=== PATIENT | male | born 1930 | race Caucasian/White ===

== ENCOUNTER → 2016-12-11 | Outpatient (REF) ==
[~2016-12-11] MED LIST: ALPHAG-P-0.1-10; ALPHAG-P-0.1-5ML OU; ALPHAGAN-P 5 ML5 ML OU; ASPIR-LOW81 MG PO; ASPIRIN 81M81 MG/TA2 PO; ASPIRIN E.C. 8181 MG PO; BRIMONIDINE 0.15% OU; CEPHALEXIN500 M1 PO; CORRECTIVE LAXAT5 MG PO; COUMADIN 22.5 MG/TAB PO; COUMADIN 5MG5 MG/TAB PO; COZAAR100 MG PO; DIPYRIDAMOLE PO; FISH OIL 1000MG1 CAP PO; FISH OIL500 MG PO; FLOMAX 0.40.4 MG/CAP; FLOMAX 0.40.4 MG/CAP PO; FLONASE NASAL S16 GM NS; GEMCOR600 MG PO; LASIX 20MG TABL20 MG PO; LASIX 40MG TABL40 MG PO; LEVOXYL0.025 MG PO; LIPITOR20 MG PO; LOPID 600M600 MG/TAB PO; LOPRESSOR 225 MG/TAB PO; MIRALAX PA17 GM/Dose PO; MYRBETR50MG PO; NATURAL SENNA8.6 MG PO; NITRO-DUR0.4 MG/PAT TD; NORVASC 5MG5 MG/TAB PO; OMEGA-31 SGL PO; PRINIVIL5 MG PO; PROTONIX 40MG T40 MG PO; SENNA8.6 MG PO; STOOL SOFTENER100 M2 PO; SYNTHROID0.05 MG/TA PO; SYNTHROID0.075 MG/T PO; SYSTANE 0.3-0.1 EACH OP; SYSTANE 0.3-0.1 EACH OU; TOPROL XL 50MG50 MG PO; TYLENOL 325MG325 MG PO; XALATAN EYE DROPS OU; xalatan OP
[2016-12-11 10:05] LABS: CALCIUM 9.7 mg/dL (8.4-10.2); CREATININE, serum 1.36 mg/dL (0.66-1.25); POTASSIUM 3.9 mmol/L (3.4-5.0)
== END ==
LOC: ZLAB.STJ 09:39
PROVIDERS: Family Medicine
DX: Z01.89 Encounter for other specified special examinations (principal)

== ENCOUNTER 2017-01-01 08:07 | Inpatient (IN) | payer MEDICARE, OTHER ==
[~2017-01-01] VITALS: Ht 172.7 cm; Wt 87.9 kg
[2017-01-01] VITALS (136 sets, daily range): BP systolic 154–177; BP diastolic 87–93; PULSE 54–60; TEMP 96.8–98.4; O2SAT 93–99
[~2017-01-01 08:07] MED LIST changes: -BRIMONIDINE 0.15% OU; -LASIX 20MG TABL20 MG PO; -LASIX 40MG TABL40 MG PO; -LIPITOR20 MG PO; -NITRO-DUR0.4 MG/PAT TD; -NORVASC 5MG5 MG/TAB PO; -PRINIVIL5 MG PO; -SYNTHROID0.075 MG/T PO; -SYSTANE 0.3-0.1 EACH OU; -TOPROL XL 50MG50 MG PO
[2017-01-01 08:37] LABS: BASO % 0.7 % (0.0-2.0); EOS # 0.1 (0.0-0.7); EOS % 2.2 % (0-4.0); GRAN # 3.9 (1.4-6.5); GRAN % 70.9 % (42.2-75.2); HEMATOCRIT 37.2 % (42.0-52.0); HEMOGLOBIN 12.2 g/dl (13.5-18.0); LYMPH # 1.1 (1.2-3.4); LYMPH % 20.1 % (20.0-51.0); MEAN CELL VOLUME 95 fl (80.0-100.0); MEAN CORPUSCULAR HEMOGLOBIN 31 pg (27.0-31.0); MEAN CORPUSCULAR HGB CONC 33 g/dl (33.0-37.0); MEAN PLATELET VOLUME 9.9 fl (7.4-10.4); MONO # 0.3 (0.1-0.6); MONO % 5.7 % (1.7-9.3); PLATELET COUNT 169 K/mm3 (130-400); REDCELL DISTRIBUTION WIDTH-CV 13.7 % (11.5-14.5); WHITE BLOOD COUNT 5.5 K/mm3 (4.8-10.8)
[2017-01-01 08:40] LABS: INR 2.3 (0.8-3.0); PROTHROMBIN TIME 26.3 SECONDS (9.7-12.8)
[2017-01-01 08:42] LABS: PARTIAL THROMBOPLASTIN TIME 37.4 SECONDS (26.0-37.0)
[2017-01-01 08:48] LABS: ADJUSTED CALCIUM 9.5 mg/dL (8.4-10.2); CALCIUM 9.5 mg/dL (8.4-10.2); CREATININE, serum 1.24 mg/dL (0.66-1.25); POTASSIUM 3.5 mmol/L (3.4-5.0); TOTAL PROTEIN 7.6 gm/dL (6.4-8.2)
[2017-01-01 09:05] LABS: TROPONIN-I 0.082 ng/mL (0.000-0.034)
[2017-01-01] MEDS ORDERED: SYNTHROID0.075 MG/T PO (12:11)
[2017-01-01] MEDS ORDERED: LIPITOR20 MG PO (12:11)
[2017-01-01] MEDS ORDERED: LASIX 20MG TABL20 MG PO (12:11)
[2017-01-01] MEDS ORDERED: SYSTANE 0.3-0.1 EACH OU (12:14)
[2017-01-01] MEDS ORDERED: BRIMONIDINE 0.15% OU (12:15)
[2017-01-01 16:08] LABS: INFLUENZA B NEGATIVE
[2017-01-02] VITALS (1051 sets, daily range): BP systolic 124–177; BP diastolic 69–96; PULSE 60–66; TEMP 97.4–97.8; O2SAT 80–100
[2017-01-02 06:39] LABS: BASO % 0.5 % (0.0-2.0); EOS # 0.1 (0.0-0.7); EOS % 2.2 % (0-4.0); GRAN # 4.3 (1.4-6.5); LYMPH # 1.3 (1.2-3.4); LYMPH % 21.2 % (20.0-51.0); MEAN CELL VOLUME 95 fl (80.0-100.0); MEAN CORPUSCULAR HGB CONC 33 g/dl (33.0-37.0); MEAN PLATELET VOLUME 10.1 fl (7.4-10.4); MONO # 0.5 (0.1-0.6); MONO % 7.9 % (1.7-9.3); PLATELET COUNT 175 K/mm3 (130-400); RED BLOOD COUNT 3.47 M/mm3 (4.20-5.60); REDCELL DISTRIBUTION WIDTH-CV 13.8 % (11.5-14.5); WHITE BLOOD COUNT 6.3 K/mm3 (4.8-10.8)
[2017-01-02 06:40] LABS: HEMOGLOBIN 10.8 g/dl (13.5-18.0); MEAN CORPUSCULAR HEMOGLOBIN 31 pg (27.0-31.0)
[2017-01-02 06:44] LABS: CALCIUM 9.3 mg/dL (8.4-10.2); CREATININE, serum 1.11 mg/dL (0.66-1.25); POTASSIUM 3.6 mmol/L (3.4-5.0)
[2017-01-02 07:13] LABS: TROPONIN-I 7.54 ng/mL (0.000-0.034)
[2017-01-03] VITALS (448 sets, daily range): BP systolic 103–135; BP diastolic 54–75; PULSE 59–70; TEMP 97.1–98; O2SAT 89–99
[2017-01-03 06:08] LABS: INR 2.8 (0.8-3.0); PROTHROMBIN TIME 31.8 SECONDS (9.7-12.8)
[2017-01-03 06:26] LABS: CALCIUM 9.2 mg/dL (8.4-10.2); CREATININE, serum 1.09 mg/dL (0.66-1.25); POTASSIUM 3.3 mmol/L (3.4-5.0)
[2017-01-03 06:35] LABS: TROPONIN-I 2.6 ng/mL (0.000-0.034)
[2017-01-04 03:32] VITALS: BP 88/29; PULSE 59; TEMP 97.9
[2017-01-04 04:24] VITALS: BP 113/62; PULSE 62
[2017-01-04 07:42] LABS: INR 2.2 (0.8-3.0); PROTHROMBIN TIME 24.6 SECONDS (9.7-12.8)
[2017-01-04 07:45] LABS: BASO % 0.6 % (0.0-2.0); EOS # 0.2 (0.0-0.7); GRAN # 3.2 (1.4-6.5); GRAN % 61.7 % (42.2-75.2); LYMPH # 1.3 (1.2-3.4); LYMPH % 25.5 % (20.0-51.0); MEAN CELL VOLUME 96 fl (80.0-100.0); MEAN CORPUSCULAR HGB CONC 33 g/dl (33.0-37.0); MEAN PLATELET VOLUME 10.4 fl (7.4-10.4); MONO # 0.5 (0.1-0.6); PLATELET COUNT 156 K/mm3 (130-400); RED BLOOD COUNT 3.41 M/mm3 (4.20-5.60); REDCELL DISTRIBUTION WIDTH-CV 13.8 % (11.5-14.5); WHITE BLOOD COUNT 5.3 K/mm3 (4.8-10.8)
[2017-01-04 08:07] LABS: HEMATOCRIT 32.8 % (42.0-52.0); HEMOGLOBIN 10.7 g/dl (13.5-18.0); MEAN CORPUSCULAR HEMOGLOBIN 31 pg (27.0-31.0)
[2017-01-04 08:10] LABS: CALCIUM 9.5 mg/dL (8.4-10.2); CREATININE, serum 1.15 mg/dL (0.66-1.25); POTASSIUM 3.5 mmol/L (3.4-5.0)
[2017-01-04 08:43] VITALS: BP 141/69; PULSE 68; TEMP 99.3
[2017-01-04] MEDS ORDERED: TOPROL XL 50MG50 MG PO (12:07)
[2017-01-04] MEDS ORDERED: LASIX 40MG TABL40 MG PO (12:08)
[2017-01-04] MEDS ORDERED: PRINIVIL5 MG PO (12:08)
[2017-01-04] MEDS ORDERED: NORVASC 5MG5 MG/TAB PO (12:08)
[2017-01-04] MEDS ORDERED: NITRO-DUR0.4 MG/PAT TD (12:20)
[2017-01-04 12:31] VITALS: BP 129/60; PULSE 61; TEMP 97.4
[2017-01-04 13:22] VITALS: BP 129/60; PULSE 61; TEMP 97.4
== END 2017-01-04 14:13 | DRG 280 ==
LOC: COL.ER 08:07 → PEDS 09:37 → IMCU 17:37 → MEDICAL 01-03 15:02
PROVIDERS: Emergency Medicine; Family Medicine; Nurse Practitioner Family
DX: I13.0 Hypertensive heart and chronic kidney disease with heart failure and stage 1 through stage 4 chronic kidney disease, or unspecified chronic kidney disease (principal); I21.4 Non-ST elevation (NSTEMI) myocardial infarction; I50.23 Acute on chronic systolic (congestive) heart failure; N18.3 Chronic kidney disease, stage 3 (moderate); I48.0 Paroxysmal atrial fibrillation; Z66 Do not resuscitate; I69.991 Dysphagia following unspecified cerebrovascular disease; R13.10 Dysphagia, unspecified; H40.9 Unspecified glaucoma; F03.90 Unspecified dementia, unspecified severity, without behavioral disturbance, psychotic disturbance, mood disturbance, and anxiety; E78.5 Hyperlipidemia, unspecified; Z79.01 Long term (current) use of anticoagulants; Z95.0 Presence of cardiac pacemaker
CPT/HCPCS: 99223-AI; 99233-AI; 99239; A9502; J1940; J2785; J7030

== ENCOUNTER 2019-01-03 16:03 | Inpatient (IN) | payer MEDICARE ==
[2019-01-03] VITALS (131 sets, daily range): BP systolic 100–108; BP diastolic 57–60; PULSE 60–65; TEMP 99.5; O2SAT 95–100
[~2019-01-03] VITALS: Ht 172.7 cm; Wt 92.3 kg
[~2019-01-03 16:03] MED LIST changes: +BRIMONIDINE 0.15% OU; +LASIX 20MG TABL20 MG PO; +LASIX 40MG TABL40 MG PO; +LIPITOR20 MG PO; +NITRO-DUR0.4 MG/PAT TD; +NORVASC 5MG5 MG/TAB PO; +PRINIVIL5 MG PO; +SYNTHROID0.075 MG/T PO; +SYSTANE 0.3-0.1 EACH OU; +TOPROL XL 50MG50 MG PO
[2019-01-03 16:34] LABS: ARTERIAL BLD GAS O2 SATURATION 86.9 % (92-100); ARTERIAL BLOOD GAS BASE EXCESS -5.4 (-2-2); ARTERIAL BLOOD GAS HCO3 17.2 meq/L (22-26); ARTERIAL BLOOD GAS PCO2 25.6 mmHg (35-45); ARTERIAL BLOOD GAS PO2 53.2 mmHg (80-100); ARTERIAL BLOOD GAS pH 7.45 (7.35-7.45)
[2019-01-03 16:53] LABS: HEMATOCRIT 32.5 % (42.0-52.0); HEMOGLOBIN 10.6 g/dl (13.5-18.0); MEAN CELL VOLUME 95 fl (80.0-100.0); MEAN CORPUSCULAR HEMOGLOBIN 31 pg (27.0-31.0); MEAN CORPUSCULAR HGB CONC 33 g/dl (33.0-37.0); MEAN PLATELET VOLUME 9.9 fl (7.4-10.4); PLATELET COUNT 182 K/mm3 (130-400); RED BLOOD COUNT 3.41 M/mm3 (4.20-5.60); REDCELL DISTRIBUTION WIDTH-CV 13.8 % (11.5-14.5)
[2019-01-03 16:59] LABS: INR 2.9 (0.8-3.0); PROTHROMBIN TIME 33.5 SECONDS (9.7-12.8)
[2019-01-03 17:04] LABS: BILIRUBIN,TOTAL 1.4 mg/dL (0.0-1.0); CALCIUM 9.6 mg/dL (8.4-10.2); CREATININE, serum 1.91 mg/dL (0.66-1.25); POTASSIUM 4.5 mmol/L (3.4-5.0); TOTAL PROTEIN 7.7 gm/dL (6.4-8.2)
[2019-01-03 17:18] LABS: TROPONIN-I 0.042 ng/mL (0.000-0.035)
[2019-01-03] MEDS ORDERED: SYNTHROID0.075 MG/T PO (18:29)
[2019-01-03] MEDS ORDERED: PROTONIX 40MG T40 MG PO (18:30)
[2019-01-03] MEDS ORDERED: IMDUR 30MG30 MG/TAB PO (18:30)
[2019-01-03] MEDS ORDERED: NORVASC 5MG5 MG/TAB PO (18:32)
[2019-01-03 18:44] LABS: ARTERIAL BLD GAS O2 SATURATION 92.5 % (92-100); ARTERIAL BLD GAS TCO2 CT 21.2; ARTERIAL BLOOD GAS BASE EXCESS -3.5 (-2-2); ARTERIAL BLOOD GAS HCO3 20.3 meq/L (22-26); ARTERIAL BLOOD GAS PCO2 32.1 mmHg (35-45); ARTERIAL BLOOD GAS PO2 71.5 mmHg (80-100); ARTERIAL BLOOD GAS pH 7.42 (7.35-7.45)
--- NOTE | 2019-01-03 19:30 | NUR ---
Report received from Annie SHAH from ED. ED nurse notified unit is awaiting another staff member in order to assume care. Will call when staff member arrives.
--- NOTE | 2019-01-03 20:05 | NUR ---
Pt arrives via stretcher with ED staff members. Anesthesia arrived in room just moments prior to pt arriving with preparations to intubate at bedside.
--- NOTE | 2019-01-03 20:30 | NUR ---
Anesthesia provider intubated pt at 2010 in ICU01 with an 8.0 tube. Sedation medication provided per provider. Provider remained at bedside for approximately 20 minutes following intubation. RT staff X2 with nursing staff X3 in room at this time. Pt tolerated procedure.
--- NOTE | 2019-01-03 20:30 | NUR ---
PT ARRIVED FROM ED. PATIENT INTUBATED BY SPOOL WORKER WITH A 8.0 ET TUBE. COLOR CHANGE ON ETCO2, BILATERAL CHEST RISE AND BS. CXR TAKEN TO CONFIRM ET TUBE PLACEMENT, PT PLACED ON VENT PER DOCTORS ORDERS. ABG DRAWN 30 MINUTES AFTER BEING PLACED ON VENT, RESULTS CALLED TO [facility]. FIO2 TITRATED PER [facility] ORDERS, NO FURTHER ORDERS FROM [facility] AT THIS TIME.
[2019-01-03 20:50] LABS: ARTERIAL BLD GAS O2 SATURATION 98.5 % (92-100); ARTERIAL BLD GAS TCO2 CT 19.5; ARTERIAL BLOOD GAS BASE EXCESS -5.6 (-2-2); ARTERIAL BLOOD GAS HCO3 18.6 meq/L (22-26); ARTERIAL BLOOD GAS PCO2 31.6 mmHg (35-45); ARTERIAL BLOOD GAS pH 7.39 (7.35-7.45)
[2019-01-03 20:53] LABS: ARTERIAL BLOOD GAS PO2 238.9 mmHg (80-100)
[2019-01-03 20:59] LABS: BAND 14 % (0-10); EOSINOPHIL 1 % (0-4); LYMPHOCYTE 5 % (20.0-51.0); NEUTROPHILS 80 % (42.0-75.2)
[2019-01-03 22:48] LABS: PARTIAL THROMBOPLASTIN TIME 33.3 SECONDS (26.0-37.0)
[2019-01-04] VITALS (755 sets, daily range): BP systolic 96–120; BP diastolic 45–67; PULSE 59–67; TEMP 97.5–99.5; O2SAT 85–100
[2019-01-04] MEDS ORDERED: ALPHAGAN P 15 M15 ML OU (01:44)
[2019-01-04] MEDS ORDERED: FISH OIL 1000MG1 CAP PO (01:45)
[2019-01-04] MEDS ORDERED: XALATAN EYE DROPS OD (01:46)
--- NOTE | 2019-01-04 02:03 | NUR ---
SUCTIONED SCANT WHITE
[2019-01-04 05:11] LABS: BASO % 0.4 % (0.0-2.0); EOS % 0.1 % (0-4.0); GRAN # 8.2 (1.4-6.5); GRAN % 87.4 % (42.2-75.2); LYMPH # 0.6 (1.2-3.4); LYMPH % 6.5 % (20.0-51.0); MEAN CELL VOLUME 98 fl (80.0-100.0); MEAN CORPUSCULAR HGB CONC 33 g/dl (33.0-37.0); MEAN PLATELET VOLUME 9.8 fl (7.4-10.4); MONO # 0.5 (0.1-0.6); MONO % 5.3 % (1.7-9.3); PLATELET COUNT 126 K/mm3 (130-400); REDCELL DISTRIBUTION WIDTH-CV 14.3 % (11.5-14.5)
[2019-01-04 05:12] LABS: HEMATOCRIT 27.3 % (42.0-52.0); HEMOGLOBIN 8.9 g/dl (13.5-18.0); MEAN CORPUSCULAR HEMOGLOBIN 32 pg (27.0-31.0)
[2019-01-04 05:12] LABS: ARTERIAL BLD GAS O2 SATURATION 96.3 % (92-100); ARTERIAL BLD GAS TCO2 CT 22.9; ARTERIAL BLOOD GAS BASE EXCESS -2.6 (-2-2); ARTERIAL BLOOD GAS HCO3 21.8 meq/L (22-26); ARTERIAL BLOOD GAS PCO2 36.3 mmHg (35-45); ARTERIAL BLOOD GAS PO2 97.3 mmHg (80-100)
[2019-01-04 05:16] LABS: INR 3.9 (0.8-3.0); PROTHROMBIN TIME 44.7 SECONDS (9.7-12.8)
[2019-01-04 05:25] LABS: BILIRUBIN,TOTAL 0.7 mg/dL (0.0-1.0); CALCIUM 8.3 mg/dL (8.4-10.2); CREATININE, serum 1.9 mg/dL (0.66-1.25); PHOSPHOROUS 4.5 mg/dL (2.5-4.5); POTASSIUM 4.5 mmol/L (3.4-5.0); TOTAL PROTEIN 6.1 gm/dL (6.4-8.2)
[2019-01-04 05:38] LABS: TROPONIN-I 1.15 ng/mL (0.000-0.035)
--- NOTE | 2019-01-04 05:42 | NUR ---
PT INTUBATED LESS THAN 24 HOURS.
--- NOTE | 2019-01-04 07:12 | NUR ---
Bedside report recieved from Corrie SHAH. Medication gtt's verified; ET and OG tubes verified as well. Patient turned, repositioned, and skin assessed. Cath care done at this time. Call light in reach. Family in room after report complete.
--- NOTE | 2019-01-04 07:12 | NUR ---
Bedside report provided to Lisa Jacobo RN
--- NOTE | 2019-01-04 08:15 | NUR ---
Patient restless, pulling against wrist restraints. Sedation increased at this time as patiet doesn't follow commands when told to relax. Will attempt to wean sedation down after PICC placement.
--- NOTE | 2019-01-04 10:00 | NUR ---
Received a phone call from Dr. Michelle regarding PICC tip location. PICC flushed with 30ml normal saline with good blood return noted. Chest x ray repeated. PICC tip location in lower SVC.
--- NOTE | 2019-01-04 10:53 | NUR ---
SW met with patient, who is intubated, and his daughter. Patient lives at [facility] in Independent living. He was driving up to this weekend and doing well independently. Patients PCP is Dr Gilliland and he obtains his medications from [facility]. Patients DPOA is in EMR. Patients Daughter reports if he is able they would like him to go back to [facility] for IL or SN if needed but he also recently got diagnosed with cancer and they could possibly be looking into hospice. SW discussed their options if they would like to persue hospice but they would like to continue to see how he progresses. SW will continue to follow to assist in dc planning.
--- NOTE | 2019-01-04 12:18 | NUR ---
Patient drowsy, minimal response when name called or with tactile stim. Sedation tritrated down again at this time.
--- NOTE | 2019-01-04 13:21 | NUR ---
Starting to arouse better with verbal and tactile stim. Will squeeze hands of this RN, but will not open eyes. Sedation titrted down again. Will monitor. Daughter at bedside, and explained titration, voices understanding.
--- NOTE | 2019-01-04 17:41 | NUR ---
Sedation vacation started at this time. Propofol and Fentanyl both decreased, will monitor for need to adjust.
--- NOTE | 2019-01-04 19:33 | NUR ---
Bedside report given to Jimena SHAH. Family and RT at bedside for report, questions answered. Patient repositioned to right side and skin inspected with on coming RN
--- NOTE | 2019-01-04 19:35 | NUR ---
Family at bedside. Assessment completed; patient opens eyes spontaneously and is observed moving all extremities. Not able to follow commands at this time. Granddaughter states he is very hard of hearing. Will continue to monitor.
[2019-01-05] VITALS (714 sets, daily range): BP systolic 112–136; BP diastolic 54–68; PULSE 59–63; TEMP 97.6–99; O2SAT 90–100
--- NOTE | 2019-01-05 | NUR ---
Patient able to squeeze hands on command; tolerating ventilator well on minimal sedation. No concerns at this time.
--- NOTE | 2019-01-05 01:45 | NUR ---
Bedbath provided; tolerated well. Repositioned and performed oral care.
--- NOTE | 2019-01-05 02:50 | NUR ---
SUCTIONED LARGE AMOUNTS OF BLOODY SPUTUM FROM ETTUBE EVERY TIME PT IS SUCTIONED. THIS APPEARS TO BE NEW I DIDN'T RECIEVE THIS IN REPORT. WILL LET DAY SHIFT KNOW WELL WILL CONTINUE TO ASSESS AND MONITOR.
[2019-01-05 05:09] LABS: ARTERIAL BLD GAS O2 SATURATION 91.8 % (92-100); ARTERIAL BLD GAS TCO2 CT 22.7; ARTERIAL BLOOD GAS BASE EXCESS -3.1 (-2-2); ARTERIAL BLOOD GAS HCO3 21.5 meq/L (22-26); ARTERIAL BLOOD GAS PO2 68.3 mmHg (80-100); ARTERIAL BLOOD GAS pH 7.38 (7.35-7.45)
[2019-01-05 05:39] LABS: BASO % 0.3 % (0.0-2.0); EOS # 0.2 (0.0-0.7); EOS % 3.2 % (0-4.0); GRAN # 6.3 (1.4-6.5); GRAN % 83.3 % (42.2-75.2); LYMPH # 0.5 (1.2-3.4); LYMPH % 6.7 % (20.0-51.0); MEAN CELL VOLUME 99 fl (80.0-100.0); MEAN CORPUSCULAR HGB CONC 32 g/dl (33.0-37.0); MONO # 0.5 (0.1-0.6); PLATELET COUNT 129 K/mm3 (130-400); RED BLOOD COUNT 2.74 M/mm3 (4.20-5.60); REDCELL DISTRIBUTION WIDTH-CV 14.6 % (11.5-14.5)
[2019-01-05 05:57] LABS: ALBUMIN 2.8 gm/dL (3.5-5.0); BILIRUBIN,TOTAL 0.5 mg/dL (0.0-1.0); CALCIUM 8.4 mg/dL (8.4-10.2); CREATININE, serum 1.62 mg/dL (0.66-1.25); HEMATOCRIT 27.1 % (42.0-52.0); HEMOGLOBIN 8.6 g/dl (13.5-18.0); MAGNESIUM 2.2 mg/dL (1.6-2.3); MEAN CORPUSCULAR HEMOGLOBIN 31 pg (27.0-31.0); PHOSPHOROUS 2.7 mg/dL (2.5-4.5); TOTAL PROTEIN 5.8 gm/dL (6.4-8.2)
[2019-01-05 05:58] LABS: INR 3.6 (0.8-3.0); PROTHROMBIN TIME 40.8 SECONDS (9.7-12.8)
--- NOTE | 2019-01-05 07:30 | NUR ---
Received bedside report from PABLO Hess. Patient seemed to be resting peacefully. Medications and ventilator setting varified. Will continue to monitor patient.
--- NOTE | 2019-01-05 19:26 | NUR ---
Gave report to PABLO Hager. Patient was resting in bed.
--- NOTE | 2019-01-05 19:42 | NUR ---
Assessment completed and charted at this time, please see documentation for details. Patient resting in bed, tolerating ventilator well at this time. No new issues, will continue to monitor and assess.
[2019-01-06] VITALS (750 sets, daily range): BP systolic 116–133; BP diastolic 59–68; PULSE 60–62; TEMP 97.6–98.4; O2SAT 84–99
--- NOTE | 2019-01-06 00:18 | NUR ---
Patient assessment completed and charted at this time, please see documentation for details. Patient tolerating ventilator well, no new issues to report. Will continue to monitor and assess.
--- NOTE | 2019-01-06 03:45 | NUR ---
Patient assessment completed and charted at this time. No changes from previously, will continue to monitor and assess.
[2019-01-06 04:53] LABS: BASO % 0.3 % (0.0-2.0); EOS # 0.3 (0.0-0.7); GRAN # 4.5 (1.4-6.5); GRAN % 78.5 % (42.2-75.2); LYMPH # 0.6 (1.2-3.4); LYMPH % 10.2 % (20.0-51.0); MEAN CELL VOLUME 99 fl (80.0-100.0); MEAN CORPUSCULAR HGB CONC 31 g/dl (33.0-37.0); MEAN PLATELET VOLUME 9.8 fl (7.4-10.4); MONO # 0.3 (0.1-0.6); MONO % 5.7 % (1.7-9.3); PLATELET COUNT 126 K/mm3 (130-400); RED BLOOD COUNT 2.66 M/mm3 (4.20-5.60); REDCELL DISTRIBUTION WIDTH-CV 14.5 % (11.5-14.5)
[2019-01-06 04:58] LABS: ARTERIAL BLD GAS O2 SATURATION 95.6 % (92-100); ARTERIAL BLD GAS TCO2 CT 22.3; ARTERIAL BLOOD GAS BASE EXCESS -3.2 (-2-2); ARTERIAL BLOOD GAS HCO3 21.2 meq/L (22-26); ARTERIAL BLOOD GAS PCO2 35.4 mmHg (35-45); ARTERIAL BLOOD GAS PO2 87.7 mmHg (80-100)
[2019-01-06 05:00] LABS: HEMATOCRIT 26.4 % (42.0-52.0); HEMOGLOBIN 8.3 g/dl (13.5-18.0); MEAN CORPUSCULAR HEMOGLOBIN 31 pg (27.0-31.0)
[2019-01-06 05:04] LABS: INR 1.7 (0.8-3.0); PROTHROMBIN TIME 19.1 SECONDS (9.7-12.8)
[2019-01-06 05:08] LABS: ALBUMIN 2.6 gm/dL (3.5-5.0); BILIRUBIN,TOTAL 0.7 mg/dL (0.0-1.0); CALCIUM 8.2 mg/dL (8.4-10.2); CREATININE, serum 1.41 mg/dL (0.66-1.25); MAGNESIUM 2.3 mg/dL (1.6-2.3); PHOSPHOROUS 2.2 mg/dL (2.5-4.5); POTASSIUM 4.1 mmol/L (3.4-5.0); TOTAL PROTEIN 5.5 gm/dL (6.4-8.2)
--- NOTE | 2019-01-06 05:41 | NUR ---
PT ON SMART CARE ANU VERY WELL. ON 10 OF PRESSURE SUPPORT. PT IS AWAKE OFF OF SEDATION. NO DISTRESS IS NOTED AT THIS TIME WILL CONTINUE TO MONITOR ASSESS AND LET DAY SHIFT RT KNOW OF PT STATUS AND CURRENT SETTINGS IN [facility]
--- NOTE | 2019-01-06 10:57 | NUR ---
Pt intubated unable to assess mentation, appears to be resting confortably in bed no non-verbal s/s of pain noted.
--- NOTE | 2019-01-06 11:12 | NUR ---
SW and SW student attended clinical rounding. Patient is still intubated at this time. SW will continue to follow. Updates sent to [facility].
--- NOTE | 2019-01-06 19:22 | NUR ---
Hand off given to PABLO Hager
--- NOTE | 2019-01-06 20:10 | NUR ---
Patienta assessment completed and charted at this time, please see documentation for details. Patient tolerating ventilator well at this time, will continue to monitor and assess.
[2019-01-07] VITALS (628 sets, daily range): BP systolic 119–146; BP diastolic 59–87; PULSE 60–69; TEMP 97.8–98.5; O2SAT 92–100
--- NOTE | 2019-01-07 00:25 | NUR ---
Patient assessment completed and charted at this time, please see documentation for details. Patient tolerating ventilator well, tube feeds stopped at 0000 for procedure in AM.
[2019-01-07 05:11] LABS: ARTERIAL BLD GAS O2 SATURATION 95.6 % (92-100); ARTERIAL BLD GAS TCO2 CT 24.4; ARTERIAL BLOOD GAS BASE EXCESS -1.2 (-2-2); ARTERIAL BLOOD GAS HCO3 23.3 meq/L (22-26); ARTERIAL BLOOD GAS PCO2 37.9 mmHg (35-45); ARTERIAL BLOOD GAS PO2 91.1 mmHg (80-100); ARTERIAL BLOOD GAS pH 7.41 (7.35-7.45)
[2019-01-07 05:25] LABS: MEAN CELL VOLUME 100 fl (80.0-100.0); MEAN CORPUSCULAR HGB CONC 31 g/dl (33.0-37.0); MEAN PLATELET VOLUME 10.1 fl (7.4-10.4); PLATELET COUNT 141 K/mm3 (130-400); RED BLOOD COUNT 2.65 M/mm3 (4.20-5.60); REDCELL DISTRIBUTION WIDTH-CV 14.5 % (11.5-14.5)
[2019-01-07 05:30] LABS: HEMATOCRIT 26.4 % (42.0-52.0); HEMOGLOBIN 8.2 g/dl (13.5-18.0); INR 1.4 (0.8-3.0); MEAN CORPUSCULAR HEMOGLOBIN 31 pg (27.0-31.0); PROTHROMBIN TIME 15.5 SECONDS (9.7-12.8)
[2019-01-07 06:09] LABS: ALBUMIN 2.6 gm/dL (3.5-5.0); BILIRUBIN,TOTAL 0.5 mg/dL (0.0-1.0); CALCIUM 8.2 mg/dL (8.4-10.2); CREATININE, serum 1.32 mg/dL (0.66-1.25); POTASSIUM 4.1 mmol/L (3.4-5.0); TOTAL PROTEIN 5.7 gm/dL (6.4-8.2)
--- NOTE | 2019-01-07 07:14 | NUR ---
PT RECEIVED ON SMART CARE WITH A PS OF ZERO. AT THIS TIME WE WILL NOT EXTUBATE DUE TO PENDING PROCEDURE. WILL PLACE BACK ON CMV LATER THIS AM.
--- NOTE | 2019-01-07 08:44 | NUR ---
Dr. Saab at bedside for ARETHA, Time Out Completed, Propfol increased from 15mcg/kg/min to 30mcg/kg/min, per request
--- NOTE | 2019-01-07 08:52 | NUR ---
Inrease from 15mcg/kg/me to 30mcg/kg/min per Dr. Alex's request.
--- NOTE | 2019-01-07 08:55 | NUR ---
Per Dr. Llanos no vegetation noted on ARETHA
--- NOTE | 2019-01-07 08:56 | NUR ---
Bedside procedure completed, Diprivan drip back at original rate, Per Dr. Kay no vegetation noted. Pt appears comfortable at absent of pain, VSS no and throughout procedure. Oral care completed and pt turned, will continue to monitor.
--- NOTE | 2019-01-07 13:41 | NUR ---
OGT replaced at 0905
--- NOTE | 2019-01-07 19:15 | NUR ---
Shift report given to PABLO Hager
[2019-01-08] VITALS (735 sets, daily range): BP systolic 133–1118; BP diastolic 60–75; PULSE 60–62; TEMP 97–99.1; O2SAT 93–100
--- NOTE | 2019-01-08 00:25 | NUR ---
Assessment completed and charted, no new issues to report. Patient on ventilator, tolerating. Will continue to monitor and assess.
--- NOTE | 2019-01-08 03:42 | NUR ---
Patient assessment completed and charted, tolerating ventilator well at this time. No new issues to report, will continue to monitor and assess.
[2019-01-08 05:24] LABS: BASO % 0.4 % (0.0-2.0); EOS # 0.3 (0.0-0.7); EOS % 5.4 % (0-4.0); GRAN # 4.1 (1.4-6.5); GRAN % 71.7 % (42.2-75.2); LYMPH # 0.9 (1.2-3.4); LYMPH % 15.3 % (20.0-51.0); MEAN CELL VOLUME 98 fl (80.0-100.0); MEAN CORPUSCULAR HGB CONC 32 g/dl (33.0-37.0); MEAN PLATELET VOLUME 9.7 fl (7.4-10.4); MONO # 0.4 (0.1-0.6); MONO % 6.7 % (1.7-9.3); PLATELET COUNT 159 K/mm3 (130-400); RED BLOOD COUNT 2.89 M/mm3 (4.20-5.60); REDCELL DISTRIBUTION WIDTH-CV 14.3 % (11.5-14.5)
[2019-01-08 05:26] LABS: HEMATOCRIT 28.4 % (42.0-52.0); MEAN CORPUSCULAR HEMOGLOBIN 31 pg (27.0-31.0)
[2019-01-08 05:28] LABS: INR 1.3 (0.8-3.0); PROTHROMBIN TIME 14.6 SECONDS (9.7-12.8)
[2019-01-08 05:31] LABS: ARTERIAL BLD GAS O2 SATURATION 96.5 % (92-100); ARTERIAL BLD GAS TCO2 CT 29.9; ARTERIAL BLOOD GAS BASE EXCESS 3.6 (-2-2); ARTERIAL BLOOD GAS HCO3 28.5 meq/L (22-26); ARTERIAL BLOOD GAS PCO2 44.9 mmHg (35-45); ARTERIAL BLOOD GAS pH 7.42 (7.35-7.45)
[2019-01-08 05:36] LABS: ALBUMIN 2.8 gm/dL (3.5-5.0); BILIRUBIN,TOTAL 0.4 mg/dL (0.0-1.0); CALCIUM 8.6 mg/dL (8.4-10.2); CREATININE, serum 1.32 mg/dL (0.66-1.25); POTASSIUM 4.2 mmol/L (3.4-5.0)
--- NOTE | 2019-01-08 06:00 | NUR ---
Bedside report recieved from Madan SHAH. All sedation off at this time for smart care and possible extubation. Patient tolerates well. RT in room
--- NOTE | 2019-01-08 08:30 | NUR ---
Dr. Costello decides not to extubate today DT increase of secretions and patient being unable to clear them, will wait through and reattempt on Friday. Would like to attempt thoracentesis tomorrow, so orders recieved to hold Lovenox x2 doses.
--- NOTE | 2019-01-08 11:00 | NUR ---
HARI and HARI student attended clinical rounding. Patient is not being extubated today. HARI faxed clinical update to [facility]. Will continue to follow.
--- NOTE | 2019-01-08 11:30 | NUR ---
Family in room. Spoke with them at length about POC, plan for extubating on Friday. Daughter very tearful, emotional support given. Denies needs at this time.
--- NOTE | 2019-01-08 19:41 | NUR ---
Report given to Meghna SHAH
--- NOTE | 2019-01-08 21:00 | NUR ---
PT NOT RESPONDING WHEN STERNAL RUBBED. PROPOFOL TURNED OFF FOR 20 MIN, NO RESPONSE. FENTYNL THEN TURNED OFF IN ADDITION TO PROPOFOL FOR 10 MIN WHEN PT BEGAN TO AWAKEN FROM SEDATION ENOUGH TO OPEN EYES AND FOLLOW SOME COMMANDS. IV GTTS RESUMED. PT HAS BILAT UPPER ARM AND LOWER LEG EDEMA. LEFT ARM WORSE THAN RIGHT. NO SIGNS OF WEEPING. PT UNABLE TO LIFT HANDS OFF BED, BUT DOES SQUEEZE HANDS ON COMMAND. PT NOT ABLE TO FOLLOW COMMANDS TO MOVE LOWER EXTREMITIES, BUT DOES MOVE BILAT FEET AND TOES.
[2019-01-09] VITALS (748 sets, daily range): BP systolic 125–160; BP diastolic 63–84; PULSE 60–63; TEMP 97.4–99.2; O2SAT 85–100
--- NOTE | 2019-01-09 | NUR ---
PT NOT OPENING EYES FULLY, BUT OPENING SLIGHTLY TO VOICE. PT SQUEEZING HANDS EQUALLY, BUT NOT STRONG. PT NOT FOLLOWING COMMANDS TO LIFT HANDS OFF BED OR TO MOVE FEET, BUT DOES MOVE TOES WITHOUT COMMAND.
--- NOTE | 2019-01-09 01:19 | NUR ---
CHANGED TUBE BO, BECAME MISPLACED ON PTS FACE AND NEEDED FIXED. TUBE STILL 24 AND THE LIP AND TUBE BO IN THE MIDDLE.
--- NOTE | 2019-01-09 04:00 | NUR ---
PT OPENING EYES SPONTANEOUSLY. FOLLOWING SOME, BUT NOT ALL DIRECTIONS. PT ABLE TO LIFT BILAT HANDS OFF BED, BUT NOT ON COMMAND. PT NOT MOVING TOES ON COMMAND, BUT FANNING TOES WHEN FINGER SWIPED UP MIDDLE OF POSTERIOR FOOT.
[2019-01-09 05:30] LABS: ARTERIAL BLD GAS TCO2 CT 28.9; ARTERIAL BLOOD GAS BASE EXCESS 3.7 (-2-2); ARTERIAL BLOOD GAS HCO3 27.7 meq/L (22-26); ARTERIAL BLOOD GAS PCO2 39.7 mmHg (35-45); ARTERIAL BLOOD GAS PO2 99.6 mmHg (80-100); ARTERIAL BLOOD GAS pH 7.46 (7.35-7.45)
[2019-01-09 05:36] LABS: BASO % 0.4 % (0.0-2.0); EOS # 0.3 (0.0-0.7); EOS % 4.3 % (0-4.0); GRAN # 5.5 (1.4-6.5); GRAN % 73.7 % (42.2-75.2); LYMPH # 1.1 (1.2-3.4); LYMPH % 14.4 % (20.0-51.0); MEAN CELL VOLUME 97 fl (80.0-100.0); MEAN CORPUSCULAR HEMOGLOBIN 31 pg (27.0-31.0); MEAN CORPUSCULAR HGB CONC 32 g/dl (33.0-37.0); MEAN PLATELET VOLUME 9.8 fl (7.4-10.4); MONO # 0.5 (0.1-0.6); MONO % 6.5 % (1.7-9.3); PLATELET COUNT 188 K/mm3 (130-400); RED BLOOD COUNT 3.26 M/mm3 (4.20-5.60); REDCELL DISTRIBUTION WIDTH-CV 13.9 % (11.5-14.5)
[2019-01-09 05:41] LABS: HEMATOCRIT 31.7 % (42.0-52.0)
[2019-01-09 05:44] LABS: INR 1.2 (0.8-3.0); PROTHROMBIN TIME 13.2 SECONDS (9.7-12.8)
[2019-01-09 05:50] LABS: ALBUMIN 3.1 gm/dL (3.5-5.0); BILIRUBIN,TOTAL 0.4 mg/dL (0.0-1.0); CALCIUM 8.7 mg/dL (8.4-10.2); CREATININE, serum 1.22 mg/dL (0.66-1.25); POTASSIUM 4.3 mmol/L (3.4-5.0); TOTAL PROTEIN 6.5 gm/dL (6.4-8.2)
--- NOTE | 2019-01-09 07:40 | NUR ---
Bedside report receieved from PABLO Coffman.
--- NOTE | 2019-01-09 08:00 | NUR ---
Assessment complete, patient remains on ventilator, opens eyes to voice, does not follow any commands at this time, AM care performed, patient repositioned for comfort. Call light within reach.
--- NOTE | 2019-01-09 08:41 | NUR ---
PT TAKEN OFF SMARTCARE AT THIS TIME. PT'S PRESSURE SUPPORT INCREASED FROM 8 TO 12. PT TOLERATED SMARTCARE FOR 3 HOURS. HOWEVER SEPERATION NOT CONSIDERED.
--- NOTE | 2019-01-09 10:20 | NUR ---
PT here to see patient.
--- NOTE | 2019-01-09 10:31 | NUR ---
Dr. Costello wants ET tube advanced to 26 @ lip, OG advanced to 70 cm at lip.
--- NOTE | 2019-01-09 11:00 | NUR ---
Dr. Costello here for bedside US. Family at bedside.
--- NOTE | 2019-01-09 19:35 | NUR ---
Bedside report given to PABLO Coffman.
--- NOTE | 2019-01-09 20:00 | NUR ---
PT HAS EYES OPEN AND IS FOLLOWING COMMANDS TO SQUEEZE HANDS, UNEQUAL GRASPS AND WEAK. PT IS ABLE TO WIGGLE TOES. PT UNABLE TO LIFT HANDS OR FEET OFF BED. PT IS OFF PROPOFOL, BUT ON FENTYNL AT START OF SHIFT. PT APPEARS COMFORTABLE.
[2019-01-10] VITALS (808 sets, daily range): BP systolic 123–183; BP diastolic 65–90; PULSE 60–67; TEMP 97.4–98.1; O2SAT 95–100
--- NOTE | 2019-01-10 | NUR ---
PT CONTINUES TO RESPOND ONLY TO SQUEEZING HANDS AND WIGGLING TOES. PT DOES OPEN EYES SPONTANEOUSLY AND RESPONDS TO FIRST NAME. PT DOES NOT LIFT LIMBS OFF BED.
--- NOTE | 2019-01-10 04:00 | NUR ---
PT FOLLOWING VERBAL COMMANDS: PT SQUEEZING HANDS THOUGH UNEQUAL GRASP AND WEAK. PT ATTEMPTS TO LIFT BILAT HANDS OFF BED BUT DOES MOVE HANDS. PT WIGGLES TOES ON COMMAND, BUT DOES NOT FLEX OR EXTEND AT THE ANKLE ON COMMAND. PT DOES FAN TOES AND FLEX AT KNEE AND HIP BILAT AT WILL, NOT ON COMMAND. PT MORE AWAKE AND ALERT NOW SINCE START OF SHIFT.
[2019-01-10 04:55] LABS: ARTERIAL BLD GAS O2 SATURATION 97.8 % (92-100); ARTERIAL BLD GAS TCO2 CT 31.5; ARTERIAL BLOOD GAS BASE EXCESS 5.5 (-2-2); ARTERIAL BLOOD GAS HCO3 30.2 meq/L (22-26); ARTERIAL BLOOD GAS PCO2 44.8 mmHg (35-45); ARTERIAL BLOOD GAS pH 7.45 (7.35-7.45)
[2019-01-10 04:56] LABS: ARTERIAL BLOOD GAS PO2 145.4 mmHg (80-100)
[2019-01-10 05:58] LABS: BASO % 0.4 % (0.0-2.0); EOS # 0.4 (0.0-0.7); EOS % 4.7 % (0-4.0); GRAN # 5.6 (1.4-6.5); GRAN % 73.1 % (42.2-75.2); LYMPH # 1.1 (1.2-3.4); LYMPH % 14.5 % (20.0-51.0); MEAN CELL VOLUME 97 fl (80.0-100.0); MEAN CORPUSCULAR HEMOGLOBIN 31 pg (27.0-31.0); MEAN CORPUSCULAR HGB CONC 32 g/dl (33.0-37.0); MEAN PLATELET VOLUME 9.4 fl (7.4-10.4); MONO # 0.5 (0.1-0.6); MONO % 6.4 % (1.7-9.3); PLATELET COUNT 192 K/mm3 (130-400); RED BLOOD COUNT 3.23 M/mm3 (4.20-5.60); REDCELL DISTRIBUTION WIDTH-CV 13.8 % (11.5-14.5)
[2019-01-10 06:02] LABS: INR 1.2 (0.8-3.0); PROTHROMBIN TIME 14.1 SECONDS (9.7-12.8)
[2019-01-10 06:04] LABS: HEMATOCRIT 31.4 % (42.0-52.0)
[2019-01-10 06:09] LABS: ALBUMIN 3.1 gm/dL (3.5-5.0); BILIRUBIN,TOTAL 0.4 mg/dL (0.0-1.0); CALCIUM 8.9 mg/dL (8.4-10.2); CREATININE, serum 1.22 mg/dL (0.66-1.25); POTASSIUM 4.4 mmol/L (3.4-5.0); TOTAL PROTEIN 6.5 gm/dL (6.4-8.2)
--- NOTE | 2019-01-10 07:30 | NUR ---
Bedside report received from PABLO Coffman.
--- NOTE | 2019-01-10 07:50 | NUR ---
Assessment complete, patient remains intubated, patient does not open eyes or follow any commands at this time. AM care complete.
--- NOTE | 2019-01-10 09:50 | NUR ---
RT here to push ET tube into 27 at the lip. OG remains at 70cm/
--- NOTE | 2019-01-10 10:29 | NUR ---
PT'S ETT ADVANCED PER DR. EDWARD THIS A.M. ETT NOW 27 AT THE [facility]
--- NOTE | 2019-01-10 12:30 | NUR ---
Assessment complete, family at bedside, patient moving right leg on bed, but will not open eyes or follow commands at this time, patient repositioned for comfort, call light within reach.
--- NOTE | 2019-01-10 15:42 | NUR ---
Patient appears comfortable at this time, granddaughter at bedside.
--- NOTE | 2019-01-10 19:09 | NUR ---
Bedside report given to PABLO Coffman.
--- NOTE | 2019-01-10 20:00 | NUR ---
PT ABLE TO OPEN EYES SPONTANEOUSLY AND ON COMMAND, ATTEMPTS TO SQUEEZE HANDS ON COMMAND, BUT WEAK. PT ATTEMPTS TO LIFT HANDS & FEET ON COMMAND. PT ABLE TO LIFT RIGHT HAND OFF BED, NOT LEFT HAND. PT MOVING RIGHT LEG, FLEXING AT HIP AND KNEE.
[2019-01-11] VITALS (853 sets, daily range): BP systolic 135–185; BP diastolic 63–86; PULSE 60–69; TEMP 98–99.6; O2SAT 79–100
--- NOTE | 2019-01-11 04:00 | NUR ---
PT NOT OPENING EYES, BUT FOLLOWS VERBAL COMMAND TO SQUEEZE HANDS. GRASP IS WEAK AND UNEQUAL. PT DOES MOVE BILAT FEET/TOES WHEN BOTTOMS OF FEET STIMULATED WITH FINGER. PT LIFTING RIGHT HAND OFF BED, NOT LEFT HAND ON VERBAL COMMAND.
[2019-01-11 04:40] LABS: ARTERIAL BLD GAS O2 SATURATION 97.4 % (92-100); ARTERIAL BLD GAS TCO2 CT 31.2; ARTERIAL BLOOD GAS BASE EXCESS 5.2 (-2-2); ARTERIAL BLOOD GAS HCO3 29.8 meq/L (22-26); ARTERIAL BLOOD GAS PCO2 44.1 mmHg (35-45); ARTERIAL BLOOD GAS PO2 113.4 mmHg (80-100); ARTERIAL BLOOD GAS pH 7.45 (7.35-7.45)
[2019-01-11 05:56] LABS: BASO % 0.4 % (0.0-2.0); EOS # 0.4 (0.0-0.7); EOS % 4.4 % (0-4.0); GRAN # 6.7 (1.4-6.5); GRAN % 80.6 % (42.2-75.2); LYMPH # 0.7 (1.2-3.4); LYMPH % 8.6 % (20.0-51.0); MEAN CELL VOLUME 99 fl (80.0-100.0); MEAN CORPUSCULAR HGB CONC 31 g/dl (33.0-37.0); MEAN PLATELET VOLUME 10.3 fl (7.4-10.4); MONO # 0.5 (0.1-0.6); MONO % 5.6 % (1.7-9.3); PLATELET COUNT 219 K/mm3 (130-400); RED BLOOD COUNT 3.18 M/mm3 (4.20-5.60); REDCELL DISTRIBUTION WIDTH-CV 13.8 % (11.5-14.5)
[2019-01-11 06:00] LABS: HEMATOCRIT 31.5 % (42.0-52.0); HEMOGLOBIN 9.8 g/dl (13.5-18.0); MEAN CORPUSCULAR HEMOGLOBIN 31 pg (27.0-31.0)
[2019-01-11 06:05] LABS: INR 1.2 (0.8-3.0); PROTHROMBIN TIME 14.1 SECONDS (9.7-12.8)
[2019-01-11 06:12] LABS: BILIRUBIN,TOTAL 0.4 mg/dL (0.0-1.0); CALCIUM 8.7 mg/dL (8.4-10.2); CREATININE, serum 1.13 mg/dL (0.66-1.25); MAGNESIUM 2.5 mg/dL (1.6-2.3); PHOSPHOROUS 2.4 mg/dL (2.5-4.5); POTASSIUM 4.3 mmol/L (3.4-5.0); TOTAL PROTEIN 6.4 gm/dL (6.4-8.2)
[2019-01-11 06:19] LABS: PRE ALBUMIN 15.8 mg/dL (17.6-36.0)
--- NOTE | 2019-01-11 07:39 | NUR ---
PT REMAINS ON SMARTCARE AT THIS TIME. PT TOLERATING WELL. PRESSURE SUPPORT HAS DECREASED TO 4.
--- NOTE | 2019-01-11 12:40 | NUR ---
PICC intact right upper arm with dressing change done with sterile technique. Insertion site cleansed with ChloraPrep 1, chlorhexidine impregnated disc applied, skin prep, StatLock, and Tegaderm applied. No signs or symptoms of IV complications noted. Patient unable to address any concerns due to being on the ventilator. Wrapped with Fabrizio to protect catheter.
--- NOTE | 2019-01-11 13:40 | NUR ---
REPORT RECEIVED FROMFermin PATEL RN. PATIENT CONTINUES TO BE INTUBATED. SEDATION HAS BEEN OFF SINCE 399. HE REMAINS SEDATED. WHEN I SPEAK LOUDLY IN HIS EAR, HIS EYES FLUTTER, BUT REMAIN CLOSED. WHEN I STIMULATE HIM BY TICKLING HIS FEET. HE WITHDRAWS SLIGHTLY. PATIENT DOES NOT FOLLOW COMMANDS AT THIS TIME. VENTILATOR SETTING IS ASSIST CONTROL MODE. CARE ASSUMED AT THIS TIME.
--- NOTE | 2019-01-11 14:38 | NUR ---
SW attended clinical rounds. The patient remains intubated. HARI contacted and faxed updates to Kalani at [facility] and will continue to follow.
--- NOTE | 2019-01-11 20:31 | NUR ---
PT CURRENTLY ON SMART CARE, CPAP MODE AND TOLERATING WELL SO FAR. PS AT 0. PT AROUSABLE AND WAKES UP TO VOICE. WILL CONTINUE TO MONITOR.
--- NOTE | 2019-01-11 21:18 | NUR ---
PT EXTUBATED AT 2039, PT TOLERATED PROCEDURE WELL. O2 SAT AT 96-98% ON ROOM AIR. DAUGHTERJEAN UPDATED VIA PHONE CALL AT 2049.
--- NOTE | 2019-01-11 21:43 | NUR ---
PT WAS PUT ON SMART CARE 1901 AT 2029 PT WAS DOWN TO A PRESSURE SUPPPORT OF 0 AND READY FOR EXTUBATION. CALLED DR. EDWARD TO CONFIRM EXTUBATION. AT 2039 EXTUBATION WAS DONE. PT WAS EXTUBATED TO ROOM AIR ANU WELL WITH SATS AT 97% WITH A HEART RATE OF 65 AND BREATHING RATE OF 20. PTS BREATH SOUNDS WERE COURSE AND HE CONTINUES TO COUGH UP SECRETIONS AT THIS TIME. INTERMITTINTLY USING ORAL CARE SUCTION YAUNKER TO SUCTION AND SECRETIONS THAT MAY BE COUGHED UP. RN WAS AT BEDSIDE. WILL CONTINUE TO DO Q6 BREATHING TREATMENTS WITH A MASK. WILL CONTINUE TO MONITOR AND ASSESS PT THROUGHOUT THE NIGHT.
--- NOTE | 2019-01-11 21:51 | NUR ---
VENTILATOR CHARTINGS, WEANING ASSESSMENT, ETTUBE MANAGMENTS AND ANY OTHER VENTILATOR INTERVENTIONS HAVE BEEN COMPLETED OUT DUE TO BEING EXTUBATED AT 204
[2019-01-12] VITALS (377 sets, daily range): BP systolic 135–174; BP diastolic 57–88; PULSE 60–95; TEMP 97.3–98.8; O2SAT 90–100
[2019-01-12 05:20] LABS: BASO # 0.1 (0.0-0.2); BASO % 0.6 % (0.0-2.0); EOS # 0.1 (0.0-0.7); EOS % 1.5 % (0-4.0); GRAN # 7.8 (1.4-6.5); GRAN % 80.6 % (42.2-75.2); LYMPH # 1.1 (1.2-3.4); LYMPH % 11.4 % (20.0-51.0); MEAN CELL VOLUME 97 fl (80.0-100.0); MEAN CORPUSCULAR HGB CONC 32 g/dl (33.0-37.0); MONO # 0.5 (0.1-0.6); MONO % 5.3 % (1.7-9.3); PLATELET COUNT 213 K/mm3 (130-400); RED BLOOD COUNT 3.19 M/mm3 (4.20-5.60)
[2019-01-12 05:21] LABS: HEMATOCRIT 30.8 % (42.0-52.0); HEMOGLOBIN 9.8 g/dl (13.5-18.0); MEAN CORPUSCULAR HEMOGLOBIN 31 pg (27.0-31.0)
[2019-01-12 05:33] LABS: CREATININE, serum 1.19 mg/dL (0.66-1.25); POTASSIUM 3.9 mmol/L (3.4-5.0)
--- NOTE | 2019-01-12 07:20 | NUR ---
Bedside report received from PABLO Herrera. Patient currently awake, lying in bed on room air with no complaints. VS WNL. Patient repositioned at this time. Patient tries to speak, but voice is garbled. He is coughing up secretions and continues to cough. Patient is suctioned at this time. Will continue to monitor.
--- NOTE | 2019-01-12 10:20 | NUR ---
HARI attended clinical rounds. The patient has been extubated and plan is for the patient to transfer up to the floor today, 01/12. HARI then followed up with the patient and patient's daughter, Melody, to review discharge plan. Melody reports that the plan is for the patient to return back to [facility] for SNF. HARI then presented and explained the patient choice form to the patient's daughter. The patient's daughter signed and she was provided a copy. HARI contacted and faxed updates to Kalani at [facility]. HARI to continue to follow.
--- NOTE | 2019-01-12 18:40 | NUR ---
Patient arrived to room with daughter at bedside. Patient is alert, unable to speak clearly, gobbled speach. Patient is extremely hard of hearing. On room air, heart rate and rhythm are regular. Redness and scattered abrasions BLE. Mild edema BUE. Patient is very weak and needs regular turning with assistance. Coughing with thick secretions, mouth swabbed for dryness and suctioned.
--- NOTE | 2019-01-12 19:30 | NUR ---
Pt resting in bed, very hard to understand, oral care provided, shift assessments complete, left Pt call light in reach, bed in lowest position.
[2019-01-13 05:19] VITALS: BP 152/76; PULSE 62; TEMP 96.5
[2019-01-13 07:38] VITALS: BP 156/63; PULSE 61; TEMP 97.5
[2019-01-13 08:08] LABS: BASO # 0.1 (0.0-0.2); BASO % 0.9 % (0.0-2.0); EOS # 0.3 (0.0-0.7); EOS % 4.1 % (0-4.0); GRAN # 5.1 (1.4-6.5); GRAN % 75.6 % (42.2-75.2); LYMPH # 0.9 (1.2-3.4); LYMPH % 13.5 % (20.0-51.0); MEAN CELL VOLUME 97 fl (80.0-100.0); MEAN CORPUSCULAR HGB CONC 31 g/dl (33.0-37.0); MEAN PLATELET VOLUME 10.2 fl (7.4-10.4); MONO # 0.4 (0.1-0.6); MONO % 5.6 % (1.7-9.3); PLATELET COUNT 243 K/mm3 (130-400); RED BLOOD COUNT 3.09 M/mm3 (4.20-5.60); REDCELL DISTRIBUTION WIDTH-CV 14.3 % (11.5-14.5)
[2019-01-13 08:09] LABS: HEMOGLOBIN 9.4 g/dl (13.5-18.0); MEAN CORPUSCULAR HEMOGLOBIN 30 pg (27.0-31.0)
--- NOTE | 2019-01-13 08:16 | NUR ---
Pt assessment complete. Pt is laying in bed upon entry, he is alert but unable to assess orientation as patient's speech is very gargled. Pt does not appear to be in any pain or distress. Suctioning provided. Breathing unlabored on RADann Kumar DD. Pt repositioned. Daughter at bedside asking about thoracentesis. Call light within reach.
[2019-01-13 08:19] LABS: INR 1.2 (0.8-3.0); PROTHROMBIN TIME 13.4 SECONDS (9.7-12.8)
[2019-01-13 08:20] LABS: CALCIUM 9.2 mg/dL (8.4-10.2); CREATININE, serum 1.17 mg/dL (0.66-1.25); POTASSIUM 3.9 mmol/L (3.4-5.0)
--- NOTE | 2019-01-13 10:59 | NUR ---
HARI amd SW student attended clinical rounding. has scheduled a family meeting for tomorrow at 8:30 to discuss how agressive they would like to be. HARI will continue to follow and updated [facility].
[2019-01-13 11:12] VITALS: BP 144/69; PULSE 60; TEMP 97.6
--- NOTE | 2019-01-13 12:17 | NUR ---
Met with daughter at bedside by Dr Costello's request to talk about palliative care choices. She is aware that her father is not improving a lot and may never improve. he has told her he would not treat his cancer--if that is what it is. He has told her he is ready to go be with his and while he had reported that he would be on the ventilator for a short time to get better--he would not want to do that again. He is very prone to aspiration even with his saliva but "wants a drink of water". Dr Costello has set up a family meeting at 0830 tomorrow morning. One son may be there by phone call, and advised daughter that other family members are welcome if they desire. Jurgen was provided for pt comfort. Will continue to follow and support this family through the hospital stay.
--- NOTE | 2019-01-13 14:04 | NUR ---
[facility] is holding a room for patient. He can return there with hospice if no NG tube or suctioning needed. Family meeting in the AM to discuss discharge plan.
[2019-01-13 16:42] VITALS: BP 171/72; PULSE 60; TEMP 98.7
--- NOTE | 2019-01-13 18:09 | NUR ---
Pt was very drowsy through the shift, occasionally aroused to voice and for suctioning. Through most of the day he had gargled speech. Currently alert and conversing, asking for coffee and a donut. Pt does not appear to be in any pain. Remained on RA. José DD. Frequent repositioning offered. Family is at bedside. Call light within reach.
[2019-01-13 20:16] VITALS: BP 151/86; PULSE 60; TEMP 97.4
--- NOTE | 2019-01-13 20:34 | NUR ---
Resting in bed with son at bedside. Repositioned to left side at this time. Assessment complete. All lung roach diminished. Heart sounds normal. Bowels active x4. Left arm edema +3, right arm edema +1. PICC to right upper infusing 1/2 NS at 75ml/hr. No pain present at this time. Kumar draining to dependent drainage, yellow urine with sediment. Son denies needs. Call light in reach. Will monitor.
--- NOTE | 2019-01-13 22:30 | NUR ---
Repositioned to right side and suctioned oral secretions at this time.
[2019-01-13 23:47] VITALS: BP 173/61; PULSE 66; TEMP 97.7
--- NOTE | 2019-01-14 00:17 | NUR ---
Patient restless and attempting to get out of bed. States "I am going to walk home if you don't help me." Family request something to help with restlessness. Spoke with Vibha GRACIA added order for rectal tylenol. Blood pressure also elevated. Gave scheduled lopressor, will check blood pressure and given PRN hydralazine if needed. Family denies other needs. Son in law states "I went through a rough time at the end with my dad and this is just hard to see." Provided support to son in law. Denies other needs at this time. Call light in reach. Will monitor.
--- NOTE | 2019-01-14 01:31 | NUR ---
Blood pressure remains elevated. 174/64 currently. Provided PRN hydralazine. Will monitor.
[2019-01-14 01:32] VITALS: BP 174/64
[2019-01-14 02:06] VITALS: BP 126/51
--- NOTE | 2019-01-14 13:23 | NUR ---
HARI attended a family meeting with patients family, drs, and pallative care nurse. Drs explained pallative care vs agressive care and what each would look like for the patient. Family all agreed they would like to proceed with going to the hospice house after looking at the options of [facility] and [facility]. HARI faxed information and set up an appointment for the family to meet with Victor Hugo at [facility]. Victor Hugo reports they are able to accept with transport at 3:30p. Family, nurse, and dr informed of plan and all agreeable. EMS set up and DC orders faxed. HARI met with patient and his granddaughter to present IM. Granddaughter is agreeable and signed the form. Copy provided and original placed on chart. Patient dc to [facility]. [facility] informed of plan.
== END 2019-01-14 15:30 | disposition hospice, inpatient (51) | DRG 870 ==
LOC: COL.ER 16:03 → ICU 18:07 → MEDICAL 01-12 12:52 → ICU 01-12 12:52 → MEDICAL 01-12 19:00 → ICU 01-12 19:00 → MEDICAL 01-14 15:30
PROVIDERS: Emergency Medicine; Hospitalist; Internal Medicine Pulmonary Disease; Nurse Practitioner; Nurse Practitioner Family
PROC: 5A1955Z Respiratory Ventilation, Greater than 96 Consecutive Hours (ICD-10-PCS; principal; 2019-01-03)
DX: A41.1 Sepsis due to other specified staphylococcus (principal); J15.0 Pneumonia due to Klebsiella pneumoniae; J96.01 Acute respiratory failure with hypoxia; I21.A1 Myocardial infarction type 2; N17.9 Acute kidney failure, unspecified; I13.0 Hypertensive heart and chronic kidney disease with heart failure and stage 1 through stage 4 chronic kidney disease, or unspecified chronic kidney disease; I50.32 Chronic diastolic (congestive) heart failure; E87.2 Acidosis; J90 Pleural effusion, not elsewhere classified; C34.31 Malignant neoplasm of lower lobe, right bronchus or lung; E87.0 Hyperosmolality and hypernatremia; G72.81 Critical illness myopathy; Z66 Do not resuscitate; Z51.5 Encounter for palliative care; N18.9 Chronic kidney disease, unspecified; R65.20 Severe sepsis without septic shock; I48.2 Chronic atrial fibrillation; Z79.01 Long term (current) use of anticoagulants; E78.5 Hyperlipidemia, unspecified; Z95.0 Presence of cardiac pacemaker; E86.0 Dehydration; E05.90 Thyrotoxicosis, unspecified without thyrotoxic crisis or storm
CPT/HCPCS: 99233-AI; 99239; A4216; C1751; J0330; J0360; J0456; J0696; J1644; J1650; J1940; J2185; J2250; J2270; J2405; J2704; J3010; J3370; J7030; J7050